=== PATIENT | female | born 1955 | race Caucasian/White ===

== ENCOUNTER → 2018-03-06 10:46 | Outpatient (CLI) | payer MEDICAID, SELFPAY ==
--- NOTE | 2018-03-06 10:49 | MM_ITS ---
MM Dig screening mamm BI w/CAD CAD Screening COMPARISON: Digital mammograms 05/18/2016 and 03/22/2015 INDICATION: There is no personal or family history of breast cancer TECHNIQUE: Standard CC and MLO images were obtained. R2 CAD reviewed. FINDINGS: The breasts are composed primarily of fat with minimal scattered fibroglandular densities in each breast. There are few benign-appearing calcifications in each breast as noted previously. There is no suspicious lesion and there are no suspicious microcalcifications. IMPRESSION: Fatty type breast parenchyma with no suspicious lesion seen BI-RADS Category: 2 Benign Finding(s) RECOMMENDED FOLLOW-UP: 1YR - 1 YEAR FOLLOW-UP (A letter has been sent to the patient regarding results of the study.)
== END ==
PROVIDERS: Family Provider Family Medicine; PCP Family Medicine; Visit Provider Family Medicine
DX: Z12.31 Encounter for screening mammogram for malignant neoplasm of breast (principal)
CPT/HCPCS: 77067

== ENCOUNTER 2018-04-23 14:30 | Outpatient (RCR) | payer MEDICAID, SELFPAY | END 2018-04-23 14:31 | disposition home or self-care (01) | LOC: PT 14:30 | PROVIDERS: Family Provider Family Medicine; PCP Family Medicine; Visit Provider Family Medicine Sports Medicine | DX: M70.60 Trochanteric bursitis, unspecified hip (principal); M54.5 Low back pain | CPT/HCPCS: 97010; 97012; 97014; 97033; 97110; 97163; G0283 ==

== ENCOUNTER → 2020-08-12 14:11 | Outpatient (CLI) | payer MEDICARE, MEDICAID, SELFPAY ==
--- NOTE | 2020-08-12 14:19 | XR_ITS ---
PROCEDURE: XR SHOULDER RT MIN 2V Referring Doctor: Amelia Warner Patient Age:65Y CLINICAL INDICATION: ACUTE PAIN OF R SHOULDER Right shoulder pain. No injury three views right shoulder. AP internal and external rotation view along with Y-view. COMPARISON: CR XR CHEST 2V from 12/10/2019 CR XR CHEST 2V from 01/14/2020 FINDINGS: Bones well mineralized with no acute fracture or dislocation. But the humeral head and neck intact and appears to articulate and satisfactory profession with the glenoid. Suggestion of mild degenerative changes at glenohumeral joint particularly superior aspect.. AC joint is intact with some early hypertrophic changes inferiorly at AC joint from distal clavicle but nonspecific but these can impinge upon the rotator cuff. There is suggestion of narrowing at the subacromial space particularly on the AP external rotation view image-this observation can be reflection of rotator cuff demise or tear but apex right lung clear IMPRESSION: . no acute findings Likely developing arthritic changes at glenohumeral joint There does also appear to be narrowing at the subacromial space, with slight superior migration of the humeral head vs glenoid. Nonspecific this appearance suspect for rotator cuff demise or tear. Dictated by: Rufus Guzman MD 08/12/2020 15:09 Rufus Guzman MD in [place] 08/12/2020 15:09
== END ==
PROVIDERS: PCP Nurse Practitioner Family; Visit Provider Nurse Practitioner Family
DX: M25.511 Pain in right shoulder (principal)
CPT/HCPCS: 73030

== ENCOUNTER → 2020-09-30 10:18 | Outpatient (CLI) | payer MEDICARE, MEDICAID, SELFPAY ==
--- NOTE | 2020-09-30 10:25 | XR_ITS ---
PROCEDURE: XR SHOULDER RT MIN 2V CLINICAL INDICATION: RT shoulder pain COMPARISON: CR XR SHOULDER RT MIN 2V from 08/12/2020 FINDINGS: There are moderate osteoarthritic changes of the acromioclavicular and glenohumeral joint. There is severe subacromial stenosis with loss the subacromial space consistent with tear the rotator. This may be confirmed with. There is superior location of the humeral head. No fracture or dislocation Other findings:. IMPRESSION: Osteoarthritis with high-riding humeral head. Suspect rotator cuff tear with this degree subacromial stenosis. No significant change. Dictated by: Bhavik Mccain MD 09/30/2020 11:57 Bhavik Mccain MD in [place] 09/30/2020 11:57
== END ==
PROVIDERS: PCP Family Medicine; Visit Provider Orthopaedic Surgery
DX: M25.511 Pain in right shoulder (principal)
CPT/HCPCS: 73030

== ENCOUNTER → 2020-10-15 15:43 | Outpatient (CLI) | payer MEDICARE, MEDICAID, SELFPAY ==
--- NOTE | 2020-10-15 15:53 | XR_ITS ---
PROCEDURE: XR SHOULDER LT MIN 2V CLINICAL INDICATION: ACUTE PAIN OF LEFT SHOULDER COMPARISON: CR XR SHOULDER RT MIN 2V from 08/12/2020 CR XR SHOULDER RT MIN 2V from 09/30/2020 FINDINGS: There is severe left subacromial stenosis with high-riding humeral head which may be seen with rotator cuff tear is and could be confirmed with MRI if clinically warranted. There are osteoarthritic changes of the acromioclavicular joint and glenohumeral joint. There is some scalloping along the undersurface of the acromion IMPRESSION: Severe subacromial stenosis with osteoarthritis and high-riding humeral head suggesting rotator cuff tear Dictated by: Bhavik Mccain MD 10/15/2020 17:56 Bhavik Mccain MD in [place] 10/15/2020 17:56
== END ==
PROVIDERS: PCP Family Medicine; Visit Provider Nurse Practitioner Family
DX: M25.512 Pain in left shoulder (principal)
CPT/HCPCS: 73030

== ENCOUNTER → 2020-10-26 16:07 | Outpatient (CLI) | payer MEDICARE, SELFPAY | PROVIDERS: PCP Nurse Practitioner Family; Visit Provider Nurse Practitioner Family | DX: Z03.818 Encounter for observation for suspected exposure to other biological agents ruled out (principal) | CPT/HCPCS: U0003 ==

== ENCOUNTER → 2020-10-29 13:49 | Outpatient (CLI) | payer MEDICARE, MEDICAID, SELFPAY ==
--- NOTE | 2020-10-29 13:55 | MR_ITS ---
PROCEDURE: MR SHOULDER LT WO CON CLINICAL INDICATION: LEFT SHOULDER PAIN pT C/O LEFT SHOULDER PAIN X 1 1/2 MONTHS WITH NO KNOWN INJURY OR TRAUMA. > REPORT FOR LT SHOULDER SHOWS Severe subacromial stenosis with osteoarthritis and high-riding humeral head suggesting rotator cuff tear COMPARISON: CR XR SHOULDER LT MIN 2V from 10/15/2020 TECHNIQUE: Routine multiplanar multi echo sequences are performed without gadolinium enhancement. FINDINGS: There is acromioclavicular arthropathy with hypertrophy with severe subacromial stenosis. The subacromial space is less than 1 mm at the region of the AC joint. There is a high-riding humeral head. There is complete tear of the supraspinatus tendon with retraction of the musculotendinous fibers. The subscapularis, infraspinatus, and teres minor tendons appear intact. No obvious labral tear. The bicipital tendon sheath is not identified in the region of the bicipital groove consistent with tear or displacement. Motion artifact on the axial images makes it difficult to determine the integrity of the bicipital tendon. No fracture or dislocation. Osteoarthritic changes are present at the glenohumeral joint. There is tendinopathy/tendinosis of the infraspinatus tendon with possible partial tear distally IMPRESSION: 1. Complete tear of the supraspinatus tendon with retraction of the musculotendinous fibers. 2. Osteoarthritis of the AC joint with hypertrophy with osteoarthritis of the glenohumeral joint with severe subacromial stenosis. 3. Tendinopathy/tendinosis of the infraspinatus tendon with possible partial tear distally. Dictated by: Bhavik Mccain MD 10/30/2020 12:18 Bhavik Mccain MD in [place] 10/30/2020 12:18
== END ==
PROVIDERS: PCP Nurse Practitioner Family; Visit Provider Nurse Practitioner Family
DX: R93.6 Abnormal findings on diagnostic imaging of limbs (principal)
CPT/HCPCS: 73221

== ENCOUNTER 2020-11-16 13:48 | Outpatient (RCR) | payer MEDICARE, MEDICAID, SELFPAY | END 2020-11-16 14:27 | disposition home or self-care (01) | LOC: PT 13:48 | PROVIDERS: Visit Provider Orthopaedic Surgery | DX: G56.02 Carpal tunnel syndrome, left upper limb (principal) | CPT/HCPCS: 97760 ==

== ENCOUNTER → 2020-12-02 14:48 | Outpatient (CLI) | payer MEDICARE, SELFPAY ==
[2020-12-04 10:56] LABS: Covid-19 Nasal PCR Sendout P&C NEGATIVE
== END ==
PROVIDERS: PCP Nurse Practitioner; Visit Provider Nurse Practitioner
DX: Z20.822 Contact with and (suspected) exposure to COVID-19 (principal)
CPT/HCPCS: U0004

== ENCOUNTER 2020-12-07 13:29 | Outpatient (RCR) | payer MEDICARE, MEDICAID, SELFPAY | END 2020-12-07 14:32 | disposition home or self-care (01) | LOC: OT 13:29 | PROVIDERS: Visit Provider Orthopaedic Surgery | DX: G56.01 Carpal tunnel syndrome, right upper limb (principal) | CPT/HCPCS: 97763 ==

== ENCOUNTER 2020-12-22 10:00 | Outpatient (RCR) | payer MEDICARE, MEDICAID, SELFPAY ==
--- NOTE | 2020-11-22 11:31 | HMH.OTOPEV ---
OT Inpatient Evaluation Rehab OT Outpatient Eval Start: 11/22/20 11:20 Freq: Status: Active Protocol: Document 11/22/20 11:21 PABLO (Rec: 11/22/20 11:31 PABLO [id number]) Electronically Signed By Umair Rodriguez OT 11/22/20 11:21 Outpatient Therapy Subjective History Subjective History Pt is a 65 year old female who reports to therapy for initial evaluation to L shoulder. Pt explains her shoulder began hurting her ~1 month ago and does not recall a specific injury for onset of symptoms. Pt had MRI completed on 10/29/20 with findings of the following: supraspinatus complete tear with retraction, severe subacromial stenosis, possible LHB tendon tear, and possible partial tear of infraspinatus . Pt received an injection at left shoulder from ortho ~1 week ago. She does reports some symptoms have improved. Pt demonstrates with significant decline in both AROM and strength at left shoulder. Pt will continue to be seen weekly in order to address all deficits. Chief Complaint Pain,Weakness Symptom Type Throb Symptoms Relieved By Rest/Positioning Symptoms Aggravated By Physical Activity,Lifting Prior Functional Limitations None Current Functional Limitations Reaching,Lifting,Housework, Dressing,Sleeping,Recreation Activity Symptom Description Intermittent,Activity Dependent Level of pain today (0-10) 2 Pain scale - at its best (0-10) 0 Pain scale - at its worst (0-10) 8 Shoulder/Elbow Eval Shoulder Objective Measurements Shoulder ROM Left Shoulder Abduction Active Range of 90 Motion (degrees) Shoulder Flexion Active Range of Motion 90 (degrees) Query Text: Shoulder External Rotation Active Range 55 of Motion (degrees) Shoulder Internal Rotation Active Range 50 of Motion (degrees) pain with active ROM shoulder exam left standard pain with passive ROM shoulder exam left standard
== END 2020-12-22 10:05 | disposition home or self-care (01) ==
LOC: OT 10:00
PROVIDERS: PCP Family Medicine; Visit Provider Orthopaedic Surgery
DX: M25.512 Pain in left shoulder (principal); M75.02 Adhesive capsulitis of left shoulder
CPT/HCPCS: 97014; 97110; 97140; 97166; G0283

== ENCOUNTER → 2020-12-27 11:33 | Outpatient (CLI) | payer MEDICARE, SELFPAY | PROVIDERS: PCP Nurse Practitioner Family; Visit Provider Nurse Practitioner Family | DX: Z01.818 Encounter for other preprocedural examination (principal); Z20.822 Contact with and (suspected) exposure to COVID-19; M19.079 Primary osteoarthritis, unspecified ankle and foot | CPT/HCPCS: U0003 ==

== ENCOUNTER → 2021-02-21 10:36 | Outpatient (CLI) | payer MEDICARE, MEDICAID, SELFPAY | PROVIDERS: PCP Family Medicine; Visit Provider Nurse Practitioner Family | DX: Z01.818 Encounter for other preprocedural examination (principal); Z11.52 Encounter for screening for COVID-19 | CPT/HCPCS: 36415; U0003 ==

== ENCOUNTER 2021-02-28 13:55 | Emergency (ER) | payer MEDICARE, MEDICAID, SELFPAY ==
[2021-02-28] VITALS (9 sets, daily range): BP systolic 121–147; BP diastolic 59–86; PULSE 69–89; RESP 18–20; TEMP 36.6–36.7; O2SAT 90–95; BMI 42.0
--- NOTE | 2021-02-28 13:55 | ECG_ITS ---
APPROVED REPORT Exam: Resting ECG HR:68 bpm ECG Measurements Heart Rate 68 AXES GA 140 P 29 QRSd 132 QRS -49 QT 370 T 77 QTc 393 Conclusion Normal sinus rhythm Left axis deviation Left ventricular hypertrophy with QRS widening and repolarization abnormality Cannot rule out Septal infarct, age undetermined Abnormal ECG Electronically signed by : Ede Leahy, 03/02/2021 17:37:33
--- NOTE | 2021-02-28 14:05 | HMH.EDGENADL ---
ED Disposition Clinical Impression: Cervical strain Qualifiers: Encounter type: initial encounter Qualified Code(s): S16.1XXA - Strain of muscle, fascia and tendon at neck level, initial encounter Disposition: Home, Self-Care Condition on Discharge: Fair Additional Instructions: Take steroids prescribed with other medications. Take steroids with food. Monitor glucose closely. Call Dr. Horton office in the morning to be seen as soon as possible. Report back if any worsening pain, new symptoms, or other concerns. Prescriptions: predniSONE [Prednisone 20mg Tab] 40 mg PO ONCE #8 tab Prescription Printed Referrals: Amelia Warner APRN [Primary Care Provider] - - Critical Care Critical Care Time: No Attestation: On , the high probability of a clinically significant, sudden or life threatening deterioration of the following system(s) required my full and direct attention, intervention and personal management. The time I documented below is in addition to time spent performing reported procedures but includes the following listed in this critical care notation. Medical Decision Making - Medical Records Medical records reviewed: Yes: I reviewed the patient's medical records. - Sedrick Inquiry Pt receiving controlled substance: No Vital Signs: 02/28/21 14:01 02/28/21 14:30 02/28/21 15:00 Temperature 98.0 F Temperature Source Oral Pulse Rate 73 89 Pulse Rate [Right Radial] 77 Respiratory Rate 18 18 Blood Pressure 121/72 124/68 Blood Pressure [Right Arm] 130/66 Blood Pressure Mean 92 86 Blood Pressure Mean [Right Arm] 87 Blood Pressure Source [Right Arm] Automatic Cuff Blood Pressure Position [Right Arm] Sitting 02 Sat by Pulse Oximetry 95 91 L 95 Oxygen Delivery Method Room Air 02/28/21 15:30 02/28/21 16:00 02/28/21 16:30 Temperature Temperature Source Pulse Rate 69 83 87 Pulse Rate [Right Radial] Respiratory Rate 20 20 Blood Pressure 123/68 139/75 143/59 H Blood Pressure [Right Arm] Blood Pressure Mean 91 84 87 Blood Pressure Mean [Right Arm] Blood Pressure Source [Right Arm] Blood Pressure Position [Right Arm] 02 Sat by Pulse Oximetry 92 L 92 L 90 L Oxygen Delivery Method Room Air Room Air 02/28/21 17:00 02/28/21 17:30 02/28/21 21:40 Temperature 97.9 F Temperature Source Oral Pulse Rate 76 82 83 Pulse Rate [Right Radial] Respiratory Rate 19 Blood Pressure 138/82 147/74 H 140/86 Blood Pressure [Right Arm] Blood Pressure Mean 90 89 Blood Pressure Mean [Right Arm] Blood Pressure Source [Right Arm] Blood Pressure Position [Right Arm] 02 Sat by Pulse Oximetry 91 L 92 L Oxygen Delivery Method - Lab Data Lab Results 02/28/21 14:00: WBC 7.4, RBC 3.69 L, Hgb 11.9 L, Hct 36.2 L, MCV 98.3, MCH 32.2 H, MCHC 32.8, RDW 13.7, Plt Count 343, MPV 8.2, Neut % (Auto) 85.8 H, Lymph % (Auto) 8.9 L, [place] % (Auto) 4.7, Eos % (Auto) 0.2, Baso % (Auto) 0.4, Neut # (Auto) 6.3, Lymph # (Auto) 0.7, [place] # (Auto) 0.4, Eos # (Auto) 0.0, Baso # (Auto) 0.0, Total Counted 100, Neutrophils % (Manual) 85 H, Band Neutrophils % 2.0, Lymphocytes % (Manual) 6 L, Monocytes % (Manual) 7, Platelet Estimate Normal, RBC Morphology Normal 02/28/21 14:00: Sodium 140, Potassium 4.1, Chloride 108 H, Carbon Dioxide 22, Anion Gap 14.1, BUN 11, Creatinine 0.50 L, Estimated Creat Clear 44, Estimated GFR 123, Est GFR ( Amer) 149, Glucose 142 H, Calcium 10.5 H, Troponin I < 0.01 02/28/21 17:35: Troponin I < 0.01 02/28/21 20:18: Troponin I < 0.01 Result diagrams: 02/28/21 14:00 02/28/21 14:00 Orders (Tests/Meds): ED MEDICATIONS Discontinued Medications Generic Name Dose Route Start Last Admin Trade Name Trey PRN Reason Stop Dose Admin Gabapentin 600 mg 02/28/21 16:47 02/28/21 16:52 Gabapentin 600mg Tablet PO 02/28/21 16:48 600 mg ONCE ONE Administration Hydromorphone HCl 1 mg 02/28/21 18:48 02/28/21 19:14 Hydromorphone 2mg/Ml Syri
--- NOTE | 2021-02-28 14:09 | XR_ITS ---
PROCEDURE: XR CHEST PORTABLE CLINICAL HISTORY: LUE pain COMPARISON: CR CXR2V XR chest 2V from 12/17/2018 CR XR CHEST 2V from 12/10/2019 CR XR CHEST 2V from 01/14/2020 FINDINGS: The cardiomediastinal silhouette and pulmonary vascularity are within normal limits. The lungs are clear without infiltrates, suspicious nodules, or pleural effusions. No acute bony abnormalities. IMPRESSION: No acute findings. Dictated by: Bhavik Mccain MD 02/28/2021 15:37 Bhavik Mccain MD in [place] 02/28/2021 15:37
--- NOTE | 2021-02-28 14:09 | XR_ITS ---
PROCEDURE: XR SHOULDER LT MIN 2V CLINICAL INDICATION: LUE pain Left shoulder pain COMPARISON: CR XR SHOULDER RT MIN 2V from 08/12/2020 CR XR SHOULDER RT MIN 2V from 09/30/2020 CR XR SHOULDER LT MIN 2V from 10/15/2020 FINDINGS: No fracture or dislocation. No lytic or blastic change. There is normal mineralization. There is severe subacromial stenosis with high-riding humeral head consistent rotator cuff tear. There are mild osteoarthritic changes of the glenohumeral joint and acromioclavicular joint. Other findings:None. IMPRESSION: Degenerative changes with high-riding humeral head consistent rotator cuff tear. Dictated by: Bhavik Mccain MD 02/28/2021 15:32 Bhavik Mccain MD in [place] 02/28/2021 15:32
[2021-02-28 14:22] LABS: Basophils % 0.4 % (0.1-2.0); Eosinophils % 0.2 % (0.1-12.0); Hematocrit 36.2 % (37.0-47.0); Hemoglobin 11.9 g/dL (12.2-16.2); Lymphocytes # 0.7 K/mm3 (0.7-4.5); Lymphocytes % 8.9 % (10-50); Mean Corpuscular HGB Conc 32.8 g/dL (31.8-35.4); Mean Corpuscular Hemoglobin 32.2 pg (27.0-31.2); Mean Corpuscular Volume 98.3 fl (81-99); Mean Platelet Volume 8.2 fl (7.4-10.4); Monocytes # 0.4 K/mm3 (0.1-1.0); Monocytes % 4.7 % (1.7-9.3); Neutrophils # 6.3 K/mm3 (1.8-7.8); Neutrophils % 85.8 % (37.0-80.0); Platelet Count 343 K/mm3 (142-424); Red Blood Count 3.69 M/mm3 (4.20-5.40); Red Cell Distribution Width 13.7 % (11.5-17.5); White Blood Count 7.4 K/mm3 (4.8-10.8)
[2021-02-28 14:23] LABS: MANUAL DIFFERENTIAL MANUAL DIFFERENTIAL (MANUAL DIFF)
[2021-02-28 14:25] LABS: Anion Gap 14.1 mEq/L (5-15); Blood Urea Nitrogen 11 mg/dl (7-17); Calcium 10.5 mg/dl (8.4-10.2); Carbon Dioxide 22 mmol/L (22.0-30.0); Chloride 108 mmol/L (98-107); Creatinine Clearance Estimated 44 mL/min (50-200); Estimated Glomerular Filt Rate 123 ml/min (>60); GFR (African American) 149 ML/MIN (>60); Glucose 142 mg/dl (74-100); Potassium 4.1 mmoL/L (3.5-5.1); Sodium 140 mmol/L (136-145)
[2021-02-28 14:37] LABS: Troponin I < 0.01 ng/ml (0.00-0.034)
[2021-02-28 14:42] LABS: Lymphocytes % 6 % (10-50); Monocytes % 7 % (2-9); Neutrophils % 85 % (42-76); Platelet Estimate Normal; RBC Morphology Normal; Total Cells Counted 100
--- NOTE | 2021-02-28 16:48 | PC.NURSE ---
notified ER MD pt is c/o pain in posterior lower neck and L shoulder area, pt reports the initial dose of morphine did help some but pain has returned. ER MD gave verbal order for pt
--- NOTE | 2021-02-28 18:05 | PC.NURSE ---
notified ER MD pt is reporting pain has returned. ER MD states he will see pt and evaluate her. No new orders obtained at this time
[2021-02-28 18:26] LABS: Troponin I < 0.01 ng/ml (0.00-0.034)
--- NOTE | 2021-02-28 18:48 | CT_ITS ---
PROCEDURE: CT CERVICAL SPINE WO CON CLINICAL INDICATION: neck pain COMPARISON: CT SPCERVWO CT cervical spine wo con from 12/17/2018 TECHNIQUE: Axial images obtained with sagittal and coronal reformats. All CT scans at the facility use one or more dose reduction, viz: automated exposure control, ma/kV adjustment per patient size (including targeted exams where dose is matched to indication, i.e. head), or iterative reconstruction technique. Axial spiral CT scanning performed of the cervical spine beginning at the base of the skull and continuing to the upper T-spine. 3-D multiplanar reconstruction with 3-D manipulation of volumetric data set in image rendering was completed by the radiologist and/or technologist with the supervision of the radiologist on independent workstation. FINDINGS: Normal alignment. There is straightening of the cervical lordosis multilevel cervical spondylosis. No acute fracture lytic or blastic change. C2-C3: Unremarkable. C3-C4: Mild degenerative disc disease with mild bilateral foraminal narrowing from uncovertebral hypertrophy. C4-C5: Degenerative disc disease with right-sided lateral recess and foraminal narrowing from disc osteophyte complex in the right paracentral foraminal and lateral region. C5-C6: Degenerative disc disease with 3 mm anterolisthesis of C5 with left-sided foraminal narrowing from facet and uncovertebral hypertrophy. C6-C7: Degenerative disc disease with bilateral foraminal narrowing from uncovertebral hypertrophy with borderline canal stenosis. C7-T1: Left-sided foraminal narrowing from uncovertebral hypertrophy Lung apices are clear. Scattered small nodes are present in the cervical spine. IMPRESSION: Multilevel cervical spondylosis. Please see above for detailed description at each level. MRI may provide further evaluation to determine any degree of neural impingement Dictated by: Bhavik Mccain MD 03/01/2021 07:25 Bhavik Mccain MD in [place] 03/01/2021 07:25
--- NOTE | 2021-02-28 19:14 | PC.NURSE ---
pt going to ct
--- NOTE | 2021-02-28 19:14 | PC.NURSE ---
pt to CT via stretcher
[2021-02-28 20:58] LABS: Troponin I < 0.01 ng/ml (0.00-0.034)
== END 2021-02-28 21:44 | disposition home or self-care (01) ==
PROVIDERS: Emergency Provider Emergency Medicine; PCP Nurse Practitioner Family
DX: S16.1XXA Strain of muscle, fascia and tendon at neck level, initial encounter (principal); I10 Essential (primary) hypertension; E11.65 Type 2 diabetes mellitus with hyperglycemia; E66.9 Obesity, unspecified; Z68.41 Body mass index [BMI] 40.0-44.9, adult; Z79.899 Other long term (current) drug therapy
CPT/HCPCS: 71045; 72125; 73030; 80048; 84484; 85007; 85025; 93005; 96374; 96375; 96376; 99282

== ENCOUNTER → 2021-07-19 15:43 | Outpatient (CLI) | payer MEDICARE, MEDICAID, SELFPAY | PROVIDERS: PCP Nurse Practitioner Family; Visit Provider Nurse Practitioner Family | DX: Z20.822 Contact with and (suspected) exposure to COVID-19 (principal); U07.1 COVID-19 | CPT/HCPCS: U0003 ==

== ENCOUNTER 2021-08-15 15:00 | Outpatient (RCR) | payer MEDICARE, MEDICAID, SELFPAY | END 2021-08-15 15:05 | disposition home or self-care (01) | LOC: PT 15:00 | PROVIDERS: PCP Nurse Practitioner Family; Visit Provider Orthopaedic Surgery Foot and Ankle Surgery | DX: M25.571 Pain in right ankle and joints of right foot (principal) | CPT/HCPCS: 97014; 97016; 97110; 97112; 97116; 97140; 97163; 97164; G0283 ==

== ENCOUNTER 2021-09-14 12:50 | Outpatient (RCR) | payer MEDICARE, MEDICAID, SELFPAY | END 2021-09-14 12:55 | disposition home or self-care (01) | LOC: PT 12:50 | PROVIDERS: PCP Nurse Practitioner Family; Visit Provider Orthopaedic Surgery Foot and Ankle Surgery | DX: M25.571 Pain in right ankle and joints of right foot (principal) | CPT/HCPCS: 97163 ==

== ENCOUNTER 2022-02-22 15:55 | Emergency (ER) | payer MEDICARE, MEDICAID, SELFPAY ==
[2022-02-22 15:56] VITALS: BP 144/52; PULSE 65; RESP 18; TEMP 36.8; O2SAT 94; BMI 38.6
--- NOTE | 2022-02-22 16:28 | CT_ITS ---
PROCEDURE INFORMATION: Exam: CT Abdomen And Pelvis With Contrast Exam date and time: 02/22/2022 4:53 PM Age: 66 years old Clinical indication: Abdominal pain; Prior surgery; Additional info: Umbilical pain TECHNIQUE: Imaging protocol: Computed tomography of the abdomen and pelvis with contrast. Radiation optimization: All CT scans at this facility use at least one of these dose optimization techniques: automated exposure control; mA and/or kV adjustment per patient size (includes targeted exams where dose is matched to clinical indication); or iterative reconstruction. Contrast material: ISOVUE; Contrast volume: 75 ml; Contrast route: IV; COMPARISON: CR PEL1V XR pelvis 1-2V 12/17/2018 5:21 PM FINDINGS: Lungs: Calcified left lower lobe pulmonary granuloma. Mild linear scarring or subsegmental atelectasis in the lungs, no consolidation as visualized. Heart: No cardiomegaly. Liver: Borderline hepatomegaly. Slightly diminished liver attenuation suggesting mild fatty change. 5 mm hypoattenuating right lobe liver lesion coronal image 33 and axial series 3, image 51, probably tiny cyst, but this is too small to accurately characterize. No suspicious appearing mass. Gallbladder and bile ducts: The gallbladder is almost empty and contracted, limiting evaluation. No calcified stones. No biliary dilatation. Pancreas: The pancreas is normal. Spleen: The spleen is normal. Adrenal glands: The adrenal glands are normal. Kidneys and ureters: 1.2 cm simple appearing posterior left renal cortical cystic lesion with HU density 2 coronal image 57, axial series 3, image 43, no follow-up indicated per ACR guidelines. A 6 mm inferior left renal cortical lesion coronal image 45 is probably tiny 6, but too small to accurately characterize. No hydronephrosis, hydroureter, or calcified obstructing ureteral stones. Stomach and bowel: There is no evidence of intestinal perforation or obstruction. The stomach is normal. Appendix: A normal appendix is identified. Intraperitoneal space: Unremarkable. No free air. No significant fluid collection. Arteries: There is no aortic aneurysm. The vasculature demonstrates scattered mild atherosclerotic calcification. Veins: Multiple calcified phleboliths in the pelvis. No portal venous gas. Lymph nodes: Mild portacaval-periportal adenopathy, largest node approximately 4.4 cm length, and 2 x 1 cm diameter coronal image 37, axial series 3, image 39. No other significantly enlarged lymph nodes by short axis criteria. Urinary bladder: The bladder is normal. Reproductive: Post hysterectomy. Unremarkable, as visualized. Bones/joints: There are spinal degenerative changes, with multilevel disc narrrowing and spondylosis. Lower lumbar facet arthropathy. Grade 1 degenerative anterolisthesis L4-L5, and grade 1 retrolisthesis L2-L3.There is no evidence of acute fracture. Soft tissues: Anterior abdominal-pelvic wall hernia mesh. No recurrent hernia.There are no soft tissue masses or fluid collections. IMPRESSION: 1. Anterior abdominal-pelvic wall surgical mesh noted post hernia repair; no recurrent hernia. No associated fluid collection or mass. 2. No findings of appendicitis. 3. Fatty liver, borderline hepatomegaly. 4. Mild portacaval adenopathy. 5. Contracted gallbladder not well evaluated, no calcified stones or biliary dilatation. 6. Left renal cortical cystic lesions as detailed above, no follow-up indicated per ACR guidelines below. 7. Additional nonemergency and chronic findings as above. COMMENTS: Consistent with the [employer]'s Incidental Findings Committee white paper (J Am Angelia Radiol 2018): A
[2022-02-22 16:43] LABS: Basophils # 0.1 K/mm3 (0-0.2); Basophils % 1.2 % (0.1-2.0); Chloride 109 mmol/L (98-107); Eosinophils # 0.1 K/mm3 (0.0-0.4); Eosinophils % 1.5 % (0.1-12.0); Hematocrit 42.8 % (37.0-47.0); Hemoglobin 13.7 g/dL (12.2-16.2); Lymphocytes # 1.2 K/mm3 (0.7-4.5); Lymphocytes % 25.2 % (10-50); Mean Corpuscular Hemoglobin 32.8 pg (27.0-31.2); Mean Corpuscular Volume 102.8 fl (81-99); Mean Platelet Volume 7.6 fl (7.4-10.4); Monocytes # 0.3 K/mm3 (0.1-1.0); Monocytes % 7.2 % (1.7-9.3); Neutrophils # 3.1 K/mm3 (1.8-7.8); Neutrophils % 64.9 % (37.0-80.0); Platelet Count 265 K/mm3 (142-424); Red Blood Count 4.16 M/mm3 (4.20-5.40); Red Cell Distribution Width 14.2 % (11.5-17.5); White Blood Count 4.7 K/mm3 (4.8-10.8)
[2022-02-22 16:44] LABS: Potassium 4.4 mmoL/L (3.5-5.1); Sodium 141 mmol/L (136-145)
[2022-02-22 16:46] LABS: Alanine Aminotransferase 23 U/L (12-78); Aspartate Amino Transferase 38 U/L (14-36); Blood Urea Nitrogen 17 mg/dl (7-17); Creatinine Clearance Estimated 85 mL/min (50-200); Estimated Glomerular Filt Rate 72 ml/min (>60); GFR (African American) 87 ML/MIN (>60)
[2022-02-22 16:47] LABS: Albumin/Globulin Ratio 1.1 (1.1-1.8); Alkaline Phosphatase 150 U/L (38-126); Anion Gap 10.4 mEq/L (5-15); Bilirubin,Total 0.2 mg/dl (0.2-1.3); Calcium 9.2 mg/dl (8.4-10.2); Carbon Dioxide 26 mmol/L (22.0-30.0); Globulin 3.5 g/dL (1.3-3.2); Glucose 101 mg/dl (74-100); Total Protein,Serum 7.5 g/dl (6.3-8.2)
[2022-02-22 17:09] LABS: Microscopic, Urine URINE MICROSCOPIC (MICROSCOPIC)
[2022-02-22 17:31] LABS: Appearance,Urine CLEAR (Clear); Bilirubin,Urine Negative (Negative); Blood, Urine TRACE-L (Negative); Color,Urine YELLOW (Yellow); Glucose,Urine (UA) Negative (Negative); Ketones,Urine Negative (Negative); Leukocyte Esterase,Urine TRACE (Negative); Nitrate,Urine Negative (Negative); Protein,Urine Negative (Negative); Urobilinogen,Urine 0.2 EU/dl (0.2)
[2022-02-22 17:50] LABS: Bacteria,Urine Trace /lpf
--- NOTE | 2022-02-22 17:57 | HMH.EDGENADL ---
ED Disposition Clinical Impression: Abdominal pain Qualifiers: Abdominal location: unspecified location Qualified Code(s): R10.9 - Unspecified abdominal pain Disposition: Home, Self-Care Condition on Discharge: Good Instructions: DI for Acute Abdominal Pain Additional Instructions: Tylenol 3 as needed for pain. See your primary care provider tomorrow, call tomorrow morning to make appointment. Additional instructions for ABDOMINAL PAIN: See your physician as soon as possible for further evaluation. Return immediately if worsening abdominal pain, vomiting, shortness of breath, fever, vomiting of blood or abdominal distention. Additional instructions for CONTROLLED SUBSTANCES: You have been prescribed a medication that is a controlled substance. Controlled substances include pain medications known as opiates and sedative nerve medications known as benzodiazepines. Tramadol, fioricet, and gabapentin are also controlled substances. Some common opiates include: Codeine (such as Tylenol #3) Hydrocodone (Vicodin, Lortab, Lorcet, [place]) Oxycodone (Percocet, Percodan, Oxycodone, Oxy IR) Some common benzodiazepines include: Diazepam (Valium) Lorazepam (Ativan) Alprazolam (Xanax) Clonazepam (Klonopin) Oxazepam (Serax) All of these controlled substances are highly addictive and frequently abused. Misuse can and frequently does lead to addiction as well as overdose and . Medication should be stored in a locked cabinet or other secure storage unit. Do not store the medication in a motor vehicle. Short term supplies, 3 days or less, are prescribed because of the highly addictive nature of the medication. Any of the controlled substance medication NOT taken should be disposed of properly and NOT SAVED. The recommended method of disposing of unused medications is: Place the medicines in a sealable plastic bag. If the medicine is a solid, crush it or add water to dissolve it. Add something undesirable (cat litter, coffee grounds, etc.) Dispose of sealed bag in household trash Do not flush or pour unused medicines down a sink or drain. Controlled substances should not be shared, given away or sold. Because of the addictive nature and frequent abuse, these medications are sometimes stolen. These medications should be kept in a safe place where they cannot be stolen. Do not keep them in your car or purse. Lost or stolen prescriptions for controlled substances WILL NOT BE REFILLED in this emergency department, regardless of whether a police report was filed. Referrals: Amelia Warner APRN [Primary Care Provider] - - Critical Care Critical Care Time: No Attestation: On 02/22/22, the high probability of a clinically significant, sudden or life threatening deterioration of the following system(s) required my full and direct attention, intervention and personal management. The time I documented below is in addition to time spent performing reported procedures but includes the following listed in this critical care notation. Medical Decision Making - Sedrick Inquiry Pt receiving controlled substance: Yes Sedrick was queried for this patient: Yes Risks and benefits of using a controlled substance: were discussed with pt by me Vital Signs: 02/22/22 15:56 Temperature 98.3 F Temperature Source Oral Pulse Rate [Left Radial] 65 Respiratory Rate 18 Blood Pressure [Right Arm] 144/52 H Blood Pressure Mean [Right Arm] 82 Blood Pressure Source [Right Arm] Automatic Cuff Blood Pressure Position [Right Arm] Sitting 02 Sat by Pulse Oximetry 94 L Oxygen Delivery Method Room Air - Lab Data Lab Results 02/22/22 16:16: WBC 4.7 L, RBC 4.16 L, Hgb 13.7, Hct 42.8, MCV 102.8 H, MCH 32.8 H, MCHC 32.0, RDW 14.2, Plt Count 265, MPV 7.6, Neut % (Auto) 64.9, Lymph % (Auto) 25.2, [place] % (Auto) 7.2, Eos % (Auto) 1.5, Baso % (Auto) 1.2, Neut # (Auto) 3.1, Lymph # (Auto) 1.2, [place] # (Auto) 0.3, Eos # (Auto) 0.1, Baso # (Auto
[2022-02-22 18:49] LABS: Lipase 132 U/L (23-300)
[2022-02-22 19:01] VITALS: BP 138/56; PULSE 77; RESP 18; TEMP 36.8; O2SAT 96
== END 2022-02-22 19:02 | disposition home or self-care (01) ==
PROVIDERS: Emergency Provider Emergency Medicine; PCP Nurse Practitioner Family
DX: R10.32 Left lower quadrant pain (principal); R10.12 Left upper quadrant pain; I10 Essential (primary) hypertension
CPT/HCPCS: 74177; 80053; 81001; 83690; 85025; 99284; J2405; Q9967

== ENCOUNTER → 2022-03-03 08:13 | Outpatient (CLI) | payer MEDICARE, MEDICAID, SELFPAY ==
--- NOTE | 2022-03-03 08:18 | US_ITS ---
FINAL REPORT CLINICAL HISTORY: UPPER ABDOMINAL PAIN FINDINGS: ULTRASOUND RIGHT UPPER QUADRANT Sonographic imaging of the right upper quadrant was obtained. The pancreas is partially obscured. The liver is unremarkable. There are gallstones within the gallbladder. There is no gallbladder wall thickening. There is no biliary ductal dilatation. The common duct is normal at 5 mm. Limited images of the right kidney are unremarkable. IMPRESSION: Cholelithiasis. Reviewed, Interpreted and Dictated by Blake Ospina III, MD Transcribed by Kiarra De La Fuente Authenticated by Blake Ospina III, MD on 03/03/2022 12:49:14 PM [facility]
== END ==
PROVIDERS: PCP Nurse Practitioner Family; Visit Provider Nurse Practitioner Family
DX: R10.10 Upper abdominal pain, unspecified (principal)
CPT/HCPCS: 76705

== ENCOUNTER → 2022-03-28 11:20 | Outpatient (CLI) | payer MEDICARE, MEDICAID, SELFPAY | PROVIDERS: Visit Provider Surgery | DX: Z01.812 Encounter for preprocedural laboratory examination (principal); Z11.52 Encounter for screening for COVID-19; R10.11 Right upper quadrant pain | CPT/HCPCS: C9803; U0003; U0005 ==

== ENCOUNTER 2022-03-30 06:05 | Day surgery (SDC) | payer MEDICARE, MEDICAID, SELFPAY ==
[2022-03-29 09:59] VITALS: BMI 33.6
[2022-03-30] VITALS (10 sets, daily range): BP systolic 113–138; BP diastolic 51–75; PULSE 60–66; RESP 14–18; TEMP 36.3–38; O2SAT 92–98
--- NOTE | 2022-03-30 06:16 | ECG_ITS ---
APPROVED REPORT Exam: Resting ECG HR:64 bpm ECG Measurements Heart Rate 64 AXES NH 153 P 56 QRSd 165 QRS -57 QT 410 T 87 QTc 419 Conclusion SINUS RHYTHM INTRAVENTRICULAR CONDUCTION DELAY [130+ ms QRS DURATION] LEFT VENTRICULAR HYPERTROPHY AND ST-T CHANGE [VOLTAGE CRITERIA PLUS ST/T ABNORMALITY] POSSIBLE SEPTAL MYOCARDIAL INFARCTION , PROBABLY OLD [30 ms Q WAVE IN V1/V2] LATERAL MYOCARDIAL INFARCTION , OF INDETERMINATE AGE [40+ ms Q WAVE AND/OR ST/T ABNORMALITY IN I/aVL/V5/V6] ABNORMAL ECG UNCONFIRMED REPORT Electronically signed by : Ede Leahy MD 03/30/2022 08:42:45
--- NOTE | 2022-03-30 08:21 | HMH.OPNOTE ---
Date of procedure: 03/30/22 Pre-op Diagnosis:: Symptomatic cholelithiasis Post-op Diagnosis:: Chronic calculus cholecystitis Procedure performed:: Laparoscopic cholecystectomy Surgeon:: Rajinder Bravo MD [employer] APPRENTICE:: Orly Starks Anesthesia: GETA Estimated blood loss (mL): 15 Operative findings:: Fairly severe infundibular thickening Dome down approach utilized secondary to infundibular thickening Operative note:: After informed consent was obtained, the patient was taken to the operating room and placed in the supine position. General anesthesia was induced and the abdomen was prepped and draped in a sterile fashion. After infiltration with local anesthetic an infraumbilical incision was made. A Veress needle was placed in position. The abdomen was insufflated. A 5 mm optical trocar was placed in position. Under direct visualization, a 12 mm trocar was placed in the subxiphoid position and 2 additional 5 mm trocars were placed in the right upper quadrant. The gallbladder was elevated up and over the liver margin. Fairly severe infundibular thickening noted. Dome down approach was utilized secondary to these findings. A window was made just behind the infundibulum. The cystic artery was isolated with blunt [place] dissection and controlled with a combination of a clip and harmonic sayda. Harmonic sayda were then utilized to remove the gallbladder from the liver margin. Endoloops (x2) were then placed along the second infundibulum for control. Transection above the site with harmonic sayda was completed. The gallbladder was placed in a retrieval bag and removed through the subxiphoid trocar site. The right upper quadrant was thoroughly irrigated. No active bleeding or bile leak was noted. Fascia at the subxiphoid trocar site was reapproximated utilizing the NeoClose device. The remaining trocars were removed. All wounds were irrigated and skin was closed with 4-0 Monocryl in a subcuticular fashion. Steri-Strips were applied. The patient's anesthetic agents were reversed and extubation was completed prior to transfer to recovery in stable condition. Condition: stable Disposition: PACU Specimens:: Gallbladder and contents Complications:: No immediate
--- NOTE | 2022-03-30 08:31 | P.PN_ITS ---
[facility] Anesthesia Checklist - Patient Identification Patient Identification: Arm Band - Structural Data Admitted From: Home Planned Operative Procedure/s: JudyWilliams granados Consent for Planned Operative Procedure(s) Verified: Yes - NPO Status Verified Time NPO: 00:00 - Additional verifications Anesthesia Reactions: No Hx Blood Transfusions: No Blood Transfusion Reaction: No - Airway Assessment C-Spine Mobility Assessed: Yes TMJ Mobility Assessed: Yes Dentition: Poor Dentition - Neurological Assessment Level of Consciousness: Awake Hx Seizures: No Numbness or tingling in extremities: No - Anesthesia Plan Anesthesia Risk discussed: Yes Anesthesia Plan: Verified ASA Class: II Anesthesia Type: General [facility] History I have reviewed the patient's past medical history: Yes Medical History: Reports:: Hypertension, Seizures (x1 in 1994 s/p head injury) Denies:: Cancer, Diabetes Mellitus Type 1, Diabetes Mellitus Type 2, Internal Pacemaker, MRSA *Have you ever received a pneumonia vaccine?: Yes *Have you received a flu vaccine this season?: Yes Other Medical History: Reports: Arthritis. Denies: Blood Transfusion Reaction Anesthesia experience/problems:: None Laterality Cases: Bilateral: Total Knee Replacement Other Surgeries: Yes: Colonoscopy, Hysterectomy-Total. No: Pacemaker Amputation: No Fractures: Yes - *Social History Last grade of school completed: High school graduate Smoking Status: Never smoker Alcohol Intake: never Substance Use Type: denies use *Occupational Status:: retired Housing: house Household Members: spouse *Travel in the last 8 weeks: None Family Hx:: No significant family history
--- NOTE | 2022-03-30 08:32 | HMH.ANESI ---
[facility] Anesthesia Record Part I Intake, IV Amount: 400 Estimated blood loss (mL): 15 Urine output (mL): 0 Blood Pressure: 138/68 SaO2: 97 Pulse Rate: 62 Respiratory Rate: 17 Temperature: 99.6 F Patient is:: Drowsy, Oral/Nasal airway Stable to PACU at:: 08:28
--- NOTE | 2022-03-31 08:17 | P.PN_ITS ---
[facility] [place] Anesthesia Record Part II Discharge Time: 08:58 Destination: Surgical Day Care (OP Surgery) PACU nurse assessment reviewed?: Yes Patient Condition:: Good Anesthesia Complications:: None Swallowing reflex intact?: Yes Cyanosis?: No Blood Pressure: 122/56 Pulse Rate: 61 Temperature: 97.6 F Mental Status: Alert & Oriented Pain level:: 0 Nausea and/or vomitting:: None Intake, IV Amount: 0
[2022-03-31 08:18] VITALS: BP 122/56; PULSE 61; TEMP 36.4
== END 2022-03-30 09:35 | disposition home or self-care (01) ==
LOC: OR 06:07
PROVIDERS: PCP Nurse Practitioner Family; Visit Provider Surgery
PROC: 0FT44ZZ Resection of Gallbladder, Percutaneous Endoscopic Approach (ICD-10-PCS; CPT 47562; principal; 2022-03-30 07:30)
DX: K80.10 Calculus of gallbladder with chronic cholecystitis without obstruction (principal); I10 Essential (primary) hypertension; M19.90 Unspecified osteoarthritis, unspecified site; J45.909 Unspecified asthma, uncomplicated; K21.9 Gastro-esophageal reflux disease without esophagitis; E07.9 Disorder of thyroid, unspecified; Z79.899 Other long term (current) drug therapy
CPT/HCPCS: 47562; 88304; 93005; J0131; J2405

== ENCOUNTER → 2022-08-03 13:07 | Outpatient (CLI) | payer MEDICARE, MEDICAID, SELFPAY ==
--- NOTE | 2022-08-03 13:14 | XR_ITS ---
FINAL REPORT CLINICAL HISTORY: RT KNEE PAIN FINDINGS: 3 views of the right knee were obtained. There is no acute fracture or dislocation. There has been total knee arthroplasty. There appears to be an intramedullary amandeep in the tibia. There is no soft tissue abnormality. IMPRESSION: No acute process. Reviewed, Interpreted and Dictated by Arturo Armstrong MD Transcribed by Fuentes Lee Authenticated and [facility]
== END ==
PROVIDERS: PCP Nurse Practitioner Family; Visit Provider Nurse Practitioner Family
DX: M25.561 Pain in right knee (principal)
CPT/HCPCS: 73562

== ENCOUNTER → 2023-05-03 13:47 | Outpatient (CLI) | payer MEDICARE, MEDICAID, SELFPAY ==
--- NOTE | 2023-05-03 13:56 | XR_ITS ---
FINAL REPORT CLINICAL HISTORY: LOW BACK PAIN WITH RIGHT SIDED SCIATICA COMPARISON: None FINDINGS: LUMBOSACRAL SPINE SERIES Five views of the lumbosacral spine were obtained. There is no fracture present. There is moderate to space narrowing at L2-3 and L3-4. The vertebrae are normal in height. There is moderate facet sclerosis in the lower lumbar spine. There are postoperative changes from prior hernia repair in the right hemipelvis. IMPRESSION: Postoperative and degenerative changes without acute bony abnormality. Reviewed, Interpreted and Dictated by Arturo Armstrong MD Transcribed by Kathleen Shannon Authenticated and [facility]
--- NOTE | 2023-05-03 13:56 | XR_ITS ---
FINAL REPORT CLINICAL HISTORY: Right hip pain COMPARISON: None FINDINGS: RIGHT HIP Two views of the right hip demonstrate no acute fracture or dislocation. The joint spaces are preserved. The femoral head has a normal smooth contour. The visualized bony structures are well aligned. No soft tissue abnormality is seen. IMPRESSION: No acute bony abnormality. Reviewed, Interpreted and Dictated by Arturo Armstrong MD Transcribed by Kathleen Shannon Authenticated and . [facility]
== END ==
PROVIDERS: PCP Nurse Practitioner Family; Visit Provider Nurse Practitioner Family
DX: M54.41 Lumbago with sciatica, right side (principal); M25.551 Pain in right hip
CPT/HCPCS: 72110; 73502

== ENCOUNTER → 2023-10-29 12:06 | Outpatient (CLI) | payer MEDICARE, MEDICAID, SELFPAY ==
--- NOTE | 2023-10-29 12:14 | ECG_ITS ---
APPROVED REPORT Exam: Resting ECG HR:64 bpm ECG Measurements Heart Rate 64 AXES AK 205 P 69 QRSd 159 QRS -44 QT 409 T 72 QTc 418 Conclusion SINUS RHYTHM LEFT AXIS DEVIATION [QRS AXIS < -30] RIGHT BUNDLE BRANCH BLOCK [120+ ms QRS DURATION, UPRIGHT V1, 40+ ms S IN I/aVL/V4/V5/V6] LEFT VENTRICULAR HYPERTROPHY AND ST-T CHANGE [VOLTAGE CRITERIA PLUS ST/T ABNORMALITY] POSSIBLE SEPTAL MYOCARDIAL INFARCTION , OF INDETERMINATE AGE [30 ms Q WAVE IN V1/V2] ABNORMAL ECG UNCONFIRMED REPORT Electronically signed by : Ede Leahy MD 10/29/2023 14:43:35
--- NOTE | 2023-10-29 12:26 | XR_ITS ---
FINAL REPORT CLINICAL HISTORY: preop sx, htn, carpal tunnel sx COMPARISON: 02/28/2021 FINDINGS: 2 views of the chest were obtained . The heart is normal in size. The mediastinum is within normal limits. The lungs are clear. There is no pneumothorax. Osseous structures are unremarkable. IMPRESSION: No acute cardiopulmonary process. Reviewed, Interpreted and Dictated by Arturo Armstrong MD Transcribed by Judy Sorensen Authenticated and [facility]
[2023-10-29 12:51] LABS: Basophils % 0.8 % (0.1-2.0); Eosinophils # 0.1 K/mm3 (0.0-0.4); Eosinophils % 2.6 % (0.1-12.0); Hematocrit 39.7 % (37.0-47.0); Lymphocytes # 1.2 K/mm3 (0.7-4.5); Mean Corpuscular HGB Conc 32.8 g/dL (31.8-35.4); Mean Corpuscular Hemoglobin 32.8 pg (27.0-31.2); Mean Corpuscular Volume 99.8 fl (81-99); Mean Platelet Volume 6.8 fl (7.4-10.4); Monocytes # 0.2 K/mm3 (0.1-1.0); Neutrophils # 2.4 K/mm3 (1.8-7.8); Neutrophils % 59.5 % (37.0-80.0); Platelet Count 222 K/mm3 (142-424); Red Blood Count 3.98 M/mm3 (4.20-5.40); Red Cell Distribution Width 13.6 % (11.5-17.5)
[2023-10-29 13:54] LABS: Chloride 105 mmol/L (98-107); Potassium 4.5 mmoL/L (3.5-5.1); Sodium 142 mmol/L (136-145)
[2023-10-29 13:56] LABS: Blood Urea Nitrogen 15 mg/dl (7-17); Estimated Glomerular Filt Rate 122 ml/min (>60); GFR (African American) 148 ML/MIN (>60)
[2023-10-29 13:57] LABS: Alanine Aminotransferase 28 U/L (12-78); Albumin Level 4.4 g/dl (3.5-5.0); Albumin/Globulin Ratio 1.3 (1.1-1.8); Alkaline Phosphatase 135 U/L (38-126); Anion Gap 12.5 mEq/L (5-15); Aspartate Amino Transferase 40 U/L (14-36); Bilirubin,Total 0.4 mg/dl (0.2-1.3); Calcium 9.9 mg/dl (8.4-10.2); Carbon Dioxide 29 mmol/L (22.0-30.0); Globulin 3.5 g/dL (1.3-3.2); Glucose 99 mg/dl (74-100); Total Protein,Serum 7.9 g/dl (6.3-8.2)
== END ==
PROVIDERS: PCP Nurse Practitioner; Visit Provider Orthopaedic Surgery
DX: Z01.818 Encounter for other preprocedural examination (principal); G56.01 Carpal tunnel syndrome, right upper limb
CPT/HCPCS: 36415; 71046; 80053; 85025; 93005

== ENCOUNTER 2023-11-16 06:00 | Day surgery (SDC) | payer MEDICARE, MEDICAID, SELFPAY ==
[2023-11-14 08:52] VITALS: BMI 33.6
[2023-11-16] VITALS (8 sets, daily range): BP systolic 115–146; BP diastolic 57–72; PULSE 57–67; RESP 16–18; TEMP 36.4–43; O2SAT 90–96
[2023-11-16] MEDS: LACTATED RINGERS 1000ML 1,000 ML 25 ML IV (06:42)
--- NOTE | 2023-11-16 07:01 | EXP.ANES.CKL ---
[facility] Disclaimer: The information contained in this section may have been updated after the patient was seen, as this information can be updated by other users. Medical History Brain injury Hyperlipidemia Hypertension Hypothyroid Surgical History History of cholecystectomy History of hysterectomy History of knee replacement Family History Other Family history of myocardial infarction Social History (Updated 11/16/23 @ 06:41 by July Sun RN) Smoking Status: Never smoker alcohol intake: never substance use type: denies use current occupational status: retired Travel in the last 8 weeks: None household members: spouse housing: house current occupational exposures/hazards: No caffeine: Yes [facility] Anesthesia Checklist Patient Identification Patient Identification: Verbal (Name & ) Structural Data Admitted From: Home Planned Operative Procedure/s: l carpal tunnel Consent for Planned Operative Procedure(s) Verified: Yes NPO Status Verified Time NPO: 00:00 Additional verifications Anesthesia Reactions: No Hx Blood Transfusions: No Blood Transfusion Reaction: No Airway Assessment Mallampati Score:: Class I C-Spine Mobility Assessed: Yes TMJ Mobility Assessed: Yes Dentition: Good Dentition Neurological Assessment Level of Consciousness: Awake, Alert and Appropriate Anesthesia Plan Anesthesia Risk discussed: Yes Anesthesia Plan: Verified ASA Class: II Anesthesia Type: General
[2023-11-16] MEDS: CEFAZOLIN SODIUM 1 GM in 0.9 % SODIUM CHLORIDE 50 ML IV (07:24)
[2023-11-16] MEDS: BUPIVACAINE 0.5% 30ML VIAL 150 MG (07:48)
--- NOTE | 2023-11-16 08:15 | EXP.OP.NOTE ---
Date of procedure: 11/16/23 Pre-op Diagnosis:: Left carpal tunnel syndrome Post-op Diagnosis:: Same Procedure performed:: Left endoscopic carpal tunnel release Surgeon:: Reilly Evans DO NETWORK CONTROL SUPERVISOR:: Noah Patten Anesthesia: MAC and local Estimated blood loss (mL): 0 Operative findings:: See dictation Operative note:: Patient was identified preoperatively. Left wrist marked with yes my initials. Taken the operative suite. Placed upon operating bed. Patient given sedation. Left upper extremity was then prepped and draped normal sterile fashion. Once prepped and draped final operative timeout performed to identify proper patient procedure and extremity. Everyone involved the case agreed. There is no counter indications to beginning. She did receive preoperative antibiotics. Marking pen was used to rajeev plan incision over the volar wrist crease. Esmarch was used to exsanguinate the extremity. Pneumatic tourniquet inflated to 250 mmHg. Local anesthesia infiltrated at the incision site. Skin knife is used to incise the skin. Careful dissection was taken down to identify the most proximal aspect of the transverse carpal ligament. Retractors were placed. Dilator was placed. And the sled for the endoscopic carpal tunnel release was placed into the carpal tunnel. Transverse carpal ligament clearly seen superiorly within the camera. Rasp was used to remove the soft tissue from the undersurface. No curved blade was used for full release of the transverse carpal ligament this was directly viewed on the camera. Sled removed copious irrigation wound performed skin closed with nylon stitch sterile hand dressing placed patient waken from sedation taken recovery in stable condition. Condition: stable Disposition: PACU Complications:: None apparent
== END 2023-11-16 09:00 | disposition home or self-care (01) ==
PROVIDERS: PCP Nurse Practitioner; Visit Provider Orthopaedic Surgery
PROC: (CPT 64721; principal; 2023-11-16 07:30)
DX: G56.02 Carpal tunnel syndrome, left upper limb (principal)
CPT/HCPCS: 29848; 96374

== ENCOUNTER 2024-06-11 16:09 | Outpatient (CLI) | payer MEDICARE, MEDICAID, SELFPAY ==
--- NOTE | 2024-06-11 16:18 | XR_ITS ---
FINAL REPORT CLINICAL HISTORY: RT HIP PAIN FINDINGS: Right hip Three views were obtained. There is no acute fracture or dislocation. The joint spaces appear normal. No soft tissue abnormality is identified. IMPRESSION: No acute process. Reviewed, Interpreted and Dictated by Arturo Armstrong MD Transcribed by Corrina Hawk Authenticated and [facility]
== END 2024-06-11 23:59 | disposition home or self-care (01) ==
LOC: RAD 16:13
PROVIDERS: PCP Family Medicine; Visit Provider Family Medicine
DX: M25.551 Pain in right hip (principal)
CPT/HCPCS: 73502

== ENCOUNTER 2024-06-27 10:45 | Outpatient (CLI) | payer MEDICARE, MEDICAID, SELFPAY ==
--- NOTE | 2024-06-27 10:48 | US_ITS ---
Ultrasound Sonograher: PROCEDURE: US PELVIC CLINICAL INDICATION: PAIN COMPARISON: CT CT ABDOMEN PELVIS W CON from 02/22/2022 FINDINGS: Transabdominal sonographic images of the pelvis were obtained. UTERUS: The uterus is surgically absent The vaginal vault appears intact. LEFT OVARY: Not visualized RIGHT OVARY: Not visualized No masses are seen in either adnexa. Bowel obscures both adnexa. Both ovaries are not seen. There is no fluid in the cul-de-sac. IMPRESSION: 1. The uterus is surgically absent. 2. Vaginal vault appears intact. 3. Neither ovary could be visualized today. No obvious masses seen in either adnexa. 4. No fluid in the cul-de-sac. Dictated by: Zan Navas MD 06/27/2024 14:25 Zan Navas MD in OV 06/27/2024 14:25
== END 2024-06-27 23:59 | disposition home or self-care (01) ==
LOC: RAD 10:46
PROVIDERS: PCP Nurse Practitioner; Visit Provider Nurse Practitioner
DX: R10.2 Pelvic and perineal pain (principal)
CPT/HCPCS: 76856

== ENCOUNTER 2025-02-09 13:57 | Outpatient (CLI) | payer MEDICARE, MEDICAID, SELFPAY ==
--- NOTE | 2025-02-09 13:59 | CT_ITS ---
FINAL REPORT TECHNIQUE: Noncontrast CT exam of the abdomen and pelvis. This study was performed with techniques to keep radiation doses as low as reasonably achievable (ALARA). Individualized dose reduction techniques using automated exposure control or adjustment of mA and/or kV according to the patient''s size were employed. CLINICAL HISTORY: left flank pain COMPARISON: 02/22/2022 FINDINGS: Abdomen: Lung bases are clear. Liver, spleen, pancreas and adrenal glands have a normal CT appearance in their limited unenhanced state. There has been interval cholecystectomy. Surgical changes in the central abdominal wall from hernia repair. The kidneys show no stone disease or obstruction. There has been interval enlargement of a hypodense lesion in the posterior left kidney measuring 17 mm. This previously measured 13 mm. No ureteral stones are present. Pelvis: Moderate fecal impaction is noted. No distal ureteral stones are seen. Bladder is unremarkable. The appendix is normal. There are surgical changes from lower abdominal wall hernia repair. No fluid collection or adenopathy is seen. IMPRESSION: No acute intra-abdominal or intrapelvic abnormality. Interval enlargement of left renal mass is favored to represent a cyst. This is not well-characterized without contrast. Reviewed, Interpreted and Dictated by Bobby Pabon MD Transcribed by Thalia Wu Authenticated and [facility]
== END 2025-02-09 23:59 | disposition home or self-care (01) ==
LOC: RAD 13:58
PROVIDERS: PCP Nurse Practitioner; Visit Provider Nurse Practitioner
DX: M54.50 Low back pain, unspecified (principal); R30.0 Dysuria; R31.9 Hematuria, unspecified; R10.9 Unspecified abdominal pain
CPT/HCPCS: 74176